=== PATIENT | male | born 1950 | race Caucasian/White ===

== ENCOUNTER 2023-07-04 06:32 | Day surgery (SDC) | payer BC, OTHER ==
[2023-07-03 11:02] LABS: BASOPHILS # (AUTO) 0.06 K/uL (0.00-0.20); BASOPHILS % (AUTO) 0.7 % (0.0-5.0); EOSINOPHILS # (AUTO) 0.24 K/uL (0.00-0.70); EOSINOPHILS % (AUTO) 2.8 % (0.0-8.0); HEMATOCRIT 39.8 % (42-54); IMMATURE GRANULOCYTE ABSOLUTE 0.09 K/uL (0-1); LYMPHOCYTES # (AUTO) 1.2 K/uL (1.0-4.8); LYMPHOCYTES % (AUTO) 13.7 % (21.0-51.0); MEAN CORPUSCULAR HEMOGLOBIN 31.4 pg (27.0-33.0); MEAN CORPUSCULAR HGB CONC 31.9 g/dL (32.0-36.0); MEAN CORPUSCULAR VOLUME 98.5 fL (79-99); MONOCYTES # (AUTO) 0.8 K/uL (0.1-1.0); MONOCYTES % (AUTO) 8.9 % (3.0-13.0); NEUTROPHILS # (AUTO) 6.3 K/uL (1.8-7.7); NEUTROPHILS % (AUTO) 72.9 % (40.0-77.0); PLATELET COUNT (AUTO) 296 K/uL (130-400); RED BLOOD CELL COUNT(AUTO) 4.04 MIL/uL (4.50-6.20); RED CELL DISTRIBUTION WIDTH 14.3 % (11.0-15.5); WHITE BLOOD COUNT (AUTO) 8.6 K/uL (4.8-10.8)
[2023-07-03 11:03] LABS: CREATININE 1.5 mg/dL (0.5-1.5); POTASSIUM 4.9 mmol/L (3.5-5.1)
[2023-07-03 11:21] LABS: INR 0.94 (0.85-1.15); PROTHROMBIN TIME 10.9 SEC (9.6-11.6)
[2023-07-03 11:23] LABS: PARTIAL THROMBOPLASTIN TIME 31.8 SEC (26.3-35.5)
[2023-07-03 11:30] VITALS: BP 101/59; PULSE 94; RESP 18
[2023-07-03 11:54] LABS: B-TYPE NATRIURETIC PEPTIDE 189 pg/mL (0-100)
[~2023-07-04] VITALS: Ht 177.8 cm; Wt 109.0 kg
[2023-07-04] VITALS (8 sets, daily range): BP systolic 105–129; BP diastolic 55–84; PULSE 83–100; RESP 14–19
[~2023-07-04 06:32] MED LIST: APIX5TAB PO; ASPI-1197 PO; ATOR40TA69 PO; EMPA1TAB7 PO; GABA300S3 PO; GABA600T10 PO; ISOS30TA11 PO; METO-409 PO; MULT-1258 PO; OMEG100033 PO; PANT40TA54 PO; PENI500T2 PO; RANO500T2 PO; SEMA1PEN3 SQ
[2023-07-04] MEDS ORDERED: 0.9%NACL 1000ML 1,000 ML IV ONE (08:01)
[2023-07-04] MEDS ORDERED: LIDOCAINE HCL 1% MDV 50ML VIAL ONE (09:03)
[2023-07-04] MEDS ORDERED: CEFAZOLIN SODIUM 1 GM VIAL ONE (09:03)
[2023-07-04] MEDS ORDERED: BUPIVACAINE/PF 0.25% 30ML VIAL IJ ONE (09:03)
[2023-07-04] MEDS ORDERED: FENTANYL CITRATE PF 50 MCG/1 ML 2ML VIAL ONE (09:45)
[2023-07-04] MEDS ORDERED: MIDAZOLAM HCL 1 MG/ML 2ML VIAL ONE (09:46)
[2023-07-04] MEDS ORDERED: GLUCAGON 1MG KIT 1 MG ML IM PRN (11:00)
[2023-07-04] MEDS ORDERED: DEXTROSE 50%-WATER 50 ML DISP.SYRIN IV PRN (11:00)
[2023-07-04] MEDS ORDERED: ACETAMINOPHEN WITH CODEINE 1 TAB TAB PO PRN ×2 (11:00)
[2023-07-04] MEDS ORDERED: INSULIN HUMULIN R 100 UNIT/ML 3ML SQ SCH (11:30)
== END 2023-07-04 14:35 | disposition home or self-care (01) ==
LOC: DAH 06:32
PROVIDERS: ATTEND Internal Medicine Interventional Cardiology
DX: Z45.010 Encounter for checking and testing of cardiac pacemaker pulse generator [battery] (principal); I49.5 Sick sinus syndrome; I48.11 Longstanding persistent atrial fibrillation; I10 Essential (primary) hypertension; I25.10 Atherosclerotic heart disease of native coronary artery without angina pectoris; E11.43 Type 2 diabetes mellitus with diabetic autonomic (poly)neuropathy; E11.59 Type 2 diabetes mellitus with other circulatory complications; E66.9 Obesity, unspecified; Z68.33 Body mass index [BMI] 33.0-33.9, adult; Z79.84 Long term (current) use of oral hypoglycemic drugs; Z79.01 Long term (current) use of anticoagulants; Z79.899 Other long term (current) drug therapy
CPT/HCPCS: 80048; 83880; 85025; 85610; 85730; 36415; 71045 ×2; 93005; 33228; 82948 ×2; C1785; J3010; J0690; J7030; J0665; J2250; J3490; A4215; A4222; A4221; A4663; A4216; A4606; A4223 ×3; 99156; 99157

== ENCOUNTER → 2024-05-24 | Outpatient (CLI) | payer OTHER ==
[~2024-05-24] MED LIST changes: +GABA-1405 PO; -GABA600T10 PO; +REGADENOSON 0.4 MG/5 ML PF SYG IVP ONE
--- NOTE | 2024-05-28 10:34 | HMCSR ---
APPROVED REPORT TEST INDICATIONS Dyspnea The imaging protocol used to acquire images was Rest Tc-99m/stress Tc-99m 1 day Consent: The procedure was explained and understood by the patient. Informerd consent was witnessed Angela Trevino Jr (N)(ARRT) First, low dose rest was performed then high dose stress. RESTING DATA: The resting ekg shows: Atrial Fibrillation Rest SPECT myocardial perfusion imaging was performed in supine position minutes following the intra venous injection of 11 mCi of Tc-99 Sestamibi. Time of rest injection: 09 Date: 05/24/2024 PHARMACOLOGIC STRESS: Pharmacologic stress test was performed by injecting regadenoson 0.4 mg IV push followed by the intra venous injection of 31.5 mCi of Tc-99 Sestamibi. Time of stress injection: 1135 Date: 05/24/2024 Heart Rate at time of stress injection: 105 bpm. The images were gated to evaluate regional wall motion and calculate left ventricular ejection fracti on. STRESS DETAILS Reason for Termination: Infusion complete Stress Symptoms: No chest pain or symptoms Max HR Achieved: 117 bpm % of APMHR Achieved: 94 Max Blood Pressure: 265/78 mmHg Stress ECG: Atrial Fibrillation Study quality was good. Lung uptake was Normal. Artifact: increased GI uptake LEFT VENTRICLE Size: The left ventricular size is normal. Systolic Function:The left ventricular systolic function is normal. Wall Motion: No regional wall motion abnormalities noted. The left ventricular ejection fraction was calculated to be 72%.TID = 1.00. LV PERFUSION The rest and stress images show normal perfusion. IMPRESSION Normal pharmacologic nuclear stress test. Global LV Function: Normal Stress ECG Summary: Nondiagnostic LV Perfusion Summary: Normal Conclusion Normal pharmacologic nuclear stress test. Global LV Function: Normal Stress ECG Summary: Nondiagnostic LV Perfusion Summary: Normal GI artifact noted and likely source of mild fixed inferoapical defect of small size
== END | disposition home or self-care (01) ==
LOC: RAH 09:15
PROVIDERS: ATTEND Internal Medicine Cardiovascular Disease
DX: I48.91 Unspecified atrial fibrillation (principal); R06.09 Other forms of dyspnea
CPT/HCPCS: 78452; 93017; J2785; A9500 ×2